=== PATIENT | female | born 1965 | race Caucasian/White ===

== ENCOUNTER 2019-11-05 23:18 | Emergency (ER) | payer MEDICAID ==
[~2019-11-05] VITALS: Ht 154.9 cm; Wt 46.7 kg
[2019-11-05 23:20] VITALS: BP_SYST 183
--- NOTE | 2019-11-05 23:20 | NUR ---
Patient to ER bed 3 to gown for evaluation. Side rails up. Report given to MISSAEL.
--- NOTE | 2019-11-05 23:22 | NUR ---
ER at bedside examining patient.
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
--- NOTE | 2019-11-06 | NUR ---
Laceration irrigated w/ N.S, sterile 4x4 gauze used. Tolerated well.
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
[2019-11-06] MEDS ORDERED: LIDOCAINE 1%, 20 ML MDV 20 ML ONE (00:24)
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
[2019-11-06] MEDS ORDERED: BACITRACIN ZINC 15 GM TOPICAL OINTMENT TP ONE (00:45)
[2019-11-06 00:50] VITALS: BP_SYST 183
[2019-11-06] MEDS ORDERED: BACITRACIN 1 GM OINT TP ONE (00:50)
--- NOTE | 2019-11-06 00:50 | NUR ---
Patient given written and verbal discharge instructions and verbalizes understanding. ER MD discussed with patient the results and treatment provided. Patient in stable condition. ID arm band removed. Rx of Acetominophen 500 mg and Bactroban ointment given. Patient educated on pain management and to follow up with PMD. Opportunity for questions provided and answered. Medication side effect fact sheet provided.
[2019-11-06] MEDS ORDERED: LIDOCAINE 1% 10 MG/ML, 20 ML MDV INJ ONE (01:00)
== END 2019-11-06 00:50 | disposition home or self-care (01) ==
LOC: SED 23:18
DX: S01.81XA Laceration without foreign body of other part of head, initial encounter (principal); Z88.0 Allergy status to penicillin; Z88.2 Allergy status to sulfonamides; W22.8XXA Striking against or struck by other objects, initial encounter; Y93.89 Activity, other specified; Y92.89 Other specified places as the place of occurrence of the external cause; Y99.8 Other external cause status
CPT/HCPCS: 12011; 70450; 99284; J2001

== ENCOUNTER 2019-11-09 15:25 | Emergency (ER) | payer MEDICAID, SELFPAY ==
[~2019-11-09] VITALS: Ht 154.9 cm; Wt 45.4 kg
[2019-11-09 15:25] VITALS: BP_SYST 193
--- NOTE | 2019-11-09 15:25 | NUR ---
BROUGHT BACK TO BED #7, TRIAGED, REPORT GIVEN TO LAUREN
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
--- NOTE | 2019-11-09 15:40 | NUR ---
DR OH AT BEDSIDE FOR EVALUATION
--- NOTE | 2019-11-09 16:15 | NUR ---
Patient given written and verbal discharge instructions and verbalizes understanding. ER MD discussed with patient the results and treatment provided. Patient in stable condition. ID arm band removed. Rx of NONE given. Patient educated on pain management and to follow up with PMD. Pain Scale 0/10. Opportunity for questions provided and answered. Medication side effect fact sheet provided.
== END 2019-11-09 16:15 | disposition home or self-care (01) ==
LOC: SED 15:25
DX: S01.81XD Laceration without foreign body of other part of head, subsequent encounter (principal); Z88.2 Allergy status to sulfonamides; Z88.0 Allergy status to penicillin; Z88.5 Allergy status to narcotic agent; Z85.3 Personal history of malignant neoplasm of breast; X58.XXXD Exposure to other specified factors, subsequent encounter
CPT/HCPCS: 99281

== ENCOUNTER 2019-11-14 15:01 | Emergency (ER) | payer MEDICAID ==
[~2019-11-14] VITALS: Ht 157.5 cm; Wt 59.0 kg
--- NOTE | 2019-11-14 15:01 | NUR ---
Patient to ER bed 8 to gown for evaluation. Side rails up. Report given to NICOLE Mora.
[2019-11-14 15:09] VITALS: BP_SYST 195
--- NOTE | 2019-11-14 15:40 | NUR ---
DR MCDOWELL IN TO ASSESS/ STAPLE REMOVAL
--- NOTE | 2019-11-14 15:48 | NUR ---
TOLERATED WELL. WOUND CARE PROVIDED
--- NOTE | 2019-11-14 15:50 | NUR ---
Patient given written and verbal discharge instructions and verbalizes understanding. ER MD discussed with patient the results and treatment provided. Patient in stable condition. ID arm band removed. Patient educated on pain management and to follow up with PMD. Pain Scale . Opportunity for questions provided and answered. Medication side effect fact sheet provided.
[2019-11-14 16:07] VITALS: BP_SYST 162
== END 2019-11-14 15:50 | disposition home or self-care (01) ==
LOC: SED 15:01
DX: S09.1 Injury of muscle and tendon of head (principal); Z88.0 Allergy status to penicillin; Z88.2 Allergy status to sulfonamides; X58.XXXD Exposure to other specified factors, subsequent encounter
CPT/HCPCS: 99281

== ENCOUNTER 2023-11-16 17:27 | Emergency (ER) | payer MEDICAID, OTHER ==
[~2023-11-16] VITALS: Ht 154.9 cm; Wt 45.8 kg
[2023-11-16 17:46] VITALS: BP_SYST 175; PULSE 95; RESP 19; TEMP 98; O2SAT 98
== END 2023-11-16 20:31 | disposition left against medical advice (07) ==
LOC: SED 17:27
DX: S06.0X0A Concussion without loss of consciousness, initial encounter (principal); Z85.3 Personal history of malignant neoplasm of breast; Z88.0 Allergy status to penicillin; Z88.2 Allergy status to sulfonamides; W18.39XA Other fall on same level, initial encounter; Y93.89 Activity, other specified; Y92.89 Other specified places as the place of occurrence of the external cause; Y99.8 Other external cause status
CPT/HCPCS: 70450-TC; 99284